=== PATIENT | male | born 1975 | race Caucasian/White ===

== ENCOUNTER 2017-08-24 20:43 | Observation (INO) | payer SELFPAY ==
--- NOTE | 2017-08-24 20:54 | CPEKG ---
Heart Rate: 84 RR Interval: 714 P-R Interval: 144 QRSD Interval: 92 QT Interval: 372 QTC Interval: 440 P [place]: 73 QRS [place]: 51 T Wave [place]: 17 EKG Severity - ABNORMAL ECG - EKG Impression: SINUS RHYTHM EKG Impression: ST DEPRESSION, CONSIDER ISCHEMIA, DIFFUSE LDS Electronically Signed By: Sonu Munoz 26-Aug-2017 15:27:05
[2017-08-24] MEDS ORDERED: ASPIRIN 81 MG CHEWABLE TAB ONE (20:55)
[2017-08-24] MEDS ORDERED: ASPIRIN 81 MG CHEWABLE TAB PO ONE (20:56)
[2017-08-24] MEDS ORDERED: NS 1,000 ML IV ONE (20:58)
[2017-08-24 21:05] LABS: PLATELET COUNT 347 10^3/uL (150-400)
[2017-08-24] MEDS ORDERED: LIDOCAINE 1% 300 MG/30 ML SDV ONE (21:30)
[2017-08-24] MEDS ORDERED: MIDAZOLAM 2 MG/2 ML VIAL ONE (21:30)
[2017-08-24] MEDS ORDERED: fentaNYL 100 MCG/2 ML INJ ONE (21:30)
[2017-08-24] MEDS ORDERED: IOPAMIDOL (ISOVUE-370) 150 ML BTL IV ONE (21:30)
[2017-08-24] MEDS ORDERED: BIVALIRUDIN 250 MG/5 ML VIAL IV ONE (21:31)
--- NOTE | 2017-08-24 21:37 | EDPHY ---
H & P Time Seen by Provider: 08/24/17 20:54 HPI/ROS: CHIEF COMPLAINT: Chest pain HISTORY OF PRESENT ILLNESS: Patient is a 42-year-old male presents to the emergency department with palpitations and chest pain. The patient was riding his mountain bike when he felt palpitations. He stopped and rest and noted that his heart rate remained high. He was able to ride his bike out. When he got into his car he developed bilateral shoulder and neck tightness. He has also felt lightheaded and dizzy. He states"I could barely walk into the ER. "This was because he was feeling dizzy and weak. Patient states that his pain has improved at this point. He has no shortness of breath. No recent travel. No leg pain or swelling. No previous cardiac disease. REVIEW OF SYSTEMS: My complete review of systems is negative except as mentioned in the HPI. Past Medical/Surgical History: Negative Smoking Status: Never smoked Physical Exam: Vitals noted GENERAL: Mild acute distress, alert. HEENT: Eyes normal to inspection, normal pharynx, no signs of dehydration. NECK: No thyromegaly, no lymphadenopathy, supple. RESPIRATORY: Clear to auscultation bilaterally, no rales, rhonchi or wheezing. CVS: Regular rate and rhythm, no rubs, murmurs, or gallops. ABDOMEN: Soft, nontender, nondistended, no organomegaly. BACK: Normal to inspection, no CVA tenderness. SKIN: Normal color, no rash, warm, dry. No pallor. EXTREMITIES: No pedal edema, no calf tenderness, no Homans sign or cords, no joint swelling. NEURO/PSYCH: Alert and oriented, normal mood and affect, normal motor sensory exam. Constitutional: Initial Vital Signs Temperature (C) 36.5 C 08/24/17 20:44 Respiratory Rate 18 08/24/17 20:44 O2 Delivery Mode Nasal Cannula O2 (L/minute) 2 Allergies/Adverse Reactions: No Known Allergies Allergy (Verified 08/24/17 20:46) Home Medications: Medication Instructions Recorded NO HOME MEDICATIONS 02/27/11 Medical Decision Making - Diagnostics Imaging Results: Imaging Impressions Chest X-Ray 08/24/17 20:59 Impression: Negative frontal chest radiograph. ED Course/Re-evaluation: I met the patient on arrival to the room. An IV was placed. Laboratory studies , chest x-ray and EKG were obtained. EKG: Sinus rhythm at 84. Normal axis. Normal intervals. There is significant ST depression II, III, V4 through V6. There is ST elevation in AVR. A cardiac alert was called. I discussed case with Dr. Das. He will come to the emergency department to evaluate the patient. I discussed the plan with the patient. I answered all his questions. Patient's troponin was elevated at 0.045. I again informed the patient of the abnormal EKG and troponin elevation. I felt this was an acute myocardial infarction. I discussed this with the patient. 2134: Dr. Das is in the emergency department evaluated the patient. I discussed the case with Dr. Das. He states the patient does not want to go to the manager labor delivery at this time. Patient is chest pain-free. Patient will be admitted for further observation. I rechecked the patient. He is chest pain-free. I refer ordered a repeat EKG. Differential Diagnosis: My differential includes but is not limited to ACS, acute [place], pericarditis, myocarditis, GERD, reflux, PE Critical Care Time: Patient required 35 min of critical care time. This was exclusive of any unbundled procedure. This was due the patient's presentation, abnormal EKG, multiple rechecks, consultation with Cardiology. - Data Points Laboratory Results: Laboratory Results 08/24/17 20:55 08/24/17 20:55 08/24/17 08/24/17 20:55 20:55 WBC 8.46 10^3/uL 10^3/uL (3.80-9.50) RBC 4.96 10^6/uL 10^6/uL (4.40-6.38) Hgb 15.8 g/dL g/dL (13.7-17.5) Hct 45.7 % % (40.0-51.0) MCV 92.1 fL fL (81.5-99.8) MCH 31.9 pg pg (27.9-34.1) MCHC 34.6 g/dL g/dL (32.4-36.7) RDW 12.6 % % (11.5-15.2) Plt Count 347 10^3/uL 10^3/uL (150-400) MPV 9.6 fL fL (8.7-11.7) Neut % (Auto) 63.5 % % (39.3-74.2) Lymph % (Auto) 26.7 % % (15.0-45.0) Mcmullen % (Auto) 8.3 % % (4.5-13.0) Eos % (Auto) 0.9 % % (0.6-7.6) Baso % (Auto) 0.4 % % (0.3-1.7) Nucleat RBC Rel Count 0.0 % % (0.0-0.2) Absolute Neuts (auto) 5.37 10^3/uL 10^3/uL (1.70-6.50) Absolute Lymphs (auto) 2.26 10^3/uL 10^3/uL (1.00-3.00) Absolute Monos (auto) 0.70 10^3/uL 10^3/uL (0.30-0.80) Absolute Eos (auto) 0.08 10^3/uL 10^3/uL (0.03-0.40) Absolute Basos (auto) 0.03 10^3/uL 10^3/uL (0.02-0.10) Absolute Nucleated RBC 0.00 10^3/uL 10^3/uL (0-0.01) Immature Gran % 0.2 % % (0.0-1.1) Immature Gran # 0.02 10^3/uL 10^3/uL (0.00-0.10) Sodium 137 mEq/L mEq/L (135-145) Potassium 4.9 mEq/L mEq/L (3.3-5.0) Chloride 99 mEq/L mEq/L (97-110) Carbon Dioxide 23 mEq/l mEq/l (22-31) Anion Gap 15 mEq/L mEq/L (8-16) BUN 25 mg/dL H mg/dL (7-23) Creatinine 1.3 mg/dL mg/dL (0.7-1.3) Estimated GFR 60 Glucose 107 mg/dL H mg/dL (70-100) Calcium 10.3 mg/dL mg/dL (8.5-10.4) Troponin I 0.045 ng/mL H ng/mL (0.000-0.034) Specimen Hemolysis 138 Medications Given: Discontinued Medications Aspirin (Aspirin) 324 mg PO EDNOW ONE Stop: 08/24/17 20:57 Last Admin: 08/24/17 20:56 Dose: 324 mg Sodium Chloride (Ns) 1,000 mls @ 3,000 mls/hr IV ONCE ONE Stop: 08/24/17 21:17 Last Admin: 08/24/17 20:59 Dose: 1,000 mls Departure - Departure Disposition: [facility] Inpatient Acute Clinical Impression: Acute myocardial infarction Qualifiers: Myocardial infarction type: ST elevation myocardial infarction Involved coronary artery: left main coronary artery Qualified Code(s): I21.01 - ST elevation (STEMI) myocardial infarction involving left main coronary artery Condition: Fair Referrals: NONE *PRIMARY CARE P,. [Primary Care Provider] - As per Instructions
[2017-08-24] MEDS ORDERED: ONDANSETRON 4 MG/2 ML VIAL IVP PRN (22:19)
[2017-08-24] MEDS ORDERED: ONDANSETRON DISINTEGRATING 4 MG TAB PO PRN (22:19)
[2017-08-24] MEDS ORDERED: ACETAMINOPHEN 325 MG TAB PO PRN (22:19)
[2017-08-24] MEDS ORDERED: NS 1,000 ML IV SCH (22:30)
[2017-08-24] MEDS ORDERED: HEPARIN 10,000 UNIT/10 ML MDV (1,000 UNIT/ML) IVP ONE (22:32)
[2017-08-24] MEDS ORDERED: HEPARIN 10,000 UNIT/10 ML MDV (1,000 UNIT/ML) IVP PRN (22:32)
[2017-08-24] MEDS ORDERED: HEPARIN/DEXTROSE 500 ML IV SCH (22:45)
--- NOTE | 2017-08-24 23:11 | GHP ---
[f rep st] HISTORY AND PHYSICAL DATE OF ADMISSION: 08/24/2017 REASON FOR ADMISSION: Possible unstable angina. HISTORY: The patient is a healthy 42-year-old male who was mountain biking today. After a significa nt climbing section. He stopped to rest. His heart rate felt to be markedly elevated and persisted. He made his way back down, and as he was driving home, he noticed some chest pressure/tightness wit h some numbness in both arms. Because of his symptoms, he decided to come to the emergency room. Hi s symptoms had largely subsided by the time he reached the emergency room. His initial ECG demonstra sintia sinus rhythm with inferolateral horizontal ST-segment depression. There was ST-segment elevation in aVR only. A cardiac alert was activated. When I arrived to assess the patient, he stated he was pain-free and felt completely fine. PAST MEDICAL HISTORY: No ongoing medical problems. Specifically, he does not have hypertension, anahi betes, or hyperlipidemia. PAST SURGICAL HISTORY: No prior surgeries. FAMILY HISTORY: No family history of cardiac disease. MEDICATIONS: No prescription medications. ALLERGIES: No known drug allergies. SOCIAL HISTORY: He is single. However, his girlfriend is with him in the emergency room. He is a f ormer smoker, having stopped approximately 20 years ago. Alcohol consumption is not excessive. He w orks in construction. REVIEW OF SYSTEMS: Apart from the palpitations and chest discomfort that prompted this hospital enco unter, a 10-point review was negative. PHYSICAL EXAMINATION: VITAL SIGNS: heart rate 93 with sinus rhythm on monitor. Blood pressure 146/ 102. GENERAL: This is a healthy-appearing, middle-aged male in no acute distress. He is alert and oriented x3. HEAD AND NECK: No scleral icterus. Mucous membranes moist. Carotid pulses 2+ without bruits. There is no JVD. CHEST: Lung vallejo clear to auscultation bilaterally. CARDIAC: Regular rate and rhythm with a normal S1 and S2. No murmur or gallop. ABDOMEN: Soft, nondistended, nonten stuart with normal bowel sounds. EXTREMITIES: 2+ pulses in all 4 extremities. No peripheral edema. LABORATORY STUDIES: Sodium 137, potassium 4.9, BUN and creatinine of 25 and 1.3. Troponin is mildly elevated at 0.045. His CBC is normal. IMPRESSION: This is a 42-year-old male who experienced a sustained episode of palpitations while bernice ntain biking. This was followed sometime later by chest discomfort. He is now pain free. His ECG d emonstrates inferolateral ST-segment depression. His troponin is minimally elevated. The ST-segment elevation in aVR is potentially concerning for left main coronary artery disease. However, as bebe de la torred, he is pain free and states that he feels normal at this point in time. He is extremely reticen t to consider an invasive procedure such as cardiac catheterization without further evidence that it is necessary. PLAN: The patient will be placed in observation on telemetry. He will be placed on intravenous hepa rin. He has already received aspirin. Serial cardiac enzymes will be checked. He will have a repea t ECG and an echocardiogram tomorrow morning. He should proceed directly to cardiac catheterization if he has recurrent chest discomfort, a significant increase in his cardiac bio markers, or evidence of regional wall motion abnormalities on echocardiography. In the absence of such findings, consider ation can be given to a stress test with nuclear imaging. Further diagnostic and therapeutic decisio ns await his clinical course overnight. /[id number]/MODL
--- NOTE | 2017-08-24 23:14 | CPEKG ---
Heart Rate: 84 RR Interval: 714 P-R Interval: 144 QRSD Interval: 88 QT Interval: 368 QTC Interval: 436 P [place]: 65 QRS [place]: 17 T Wave [place]: 22 EKG Severity - BORDERLINE ECG - EKG Impression: SINUS RHYTHM EKG Impression: LVH BY VOLTAGE Electronically Signed By: Hayden Cortez 26-Aug-2017 08:53:57
[2017-08-24 23:23] LABS: INR 0.99 (0.83-1.16); PROTIME(PATIENT) 13.3 SEC (12.0-15.0)
[2017-08-25 05:44] LABS: CREATINE KINASE 202 IU/L (0-224)
--- NOTE | 2017-08-25 08:58 | CPEKG ---
Heart Rate: 54 RR Interval: 1111 P-R Interval: 156 QRSD Interval: 98 QT Interval: 436 QTC Interval: 414 P [place]: 65 QRS [place]: 25 T Wave [place]: 8 EKG Severity - NORMAL ECG - EKG Impression: SINUS RHYTHM Electronically Signed By: Sonu Munoz 26-Aug-2017 10:49:06
[2017-08-25] MEDS ORDERED: DIAZEPAM 5 MG TAB PO ONE (09:38)
[2017-08-25] MEDS ORDERED: ASPIRIN EC 325 MG TAB PO ONE (09:38)
[2017-08-25] MEDS ORDERED: TEMAZEPAM 15 MG CAP PO PRN (09:38)
[2017-08-25] MEDS ORDERED: NITROGLYCERIN 0.4 MG BTL SL PRN (09:38)
[2017-08-25] MEDS ORDERED: diphenhydrAMINE 25 MG CAP PO ONE (09:38)
[2017-08-25] MEDS ORDERED: FAMOTIDINE 20 MG TAB PO ONE (09:38)
--- NOTE | 2017-08-25 09:38 | SOAPPROG ---
SOAP Progress Note Assessment/Plan: Assessment: 1. Non-Q-wave myocardial infarction. Impression: Day 1 status post non-Q-wave myocardial infarction with elevation in troponin and chest pain. EKG suggest the possibility of a posterior event with early transition across the precordium. His hemodynamics are stable. He is on heparin. Recommendations are for diagnostic angiogram with an eye towards intervention. Risks and benefits of this approach were discussed. Will proceed with a right radial approach. Discussed with his . Secondary prevention discussion to occur post diagnostic procedure. 08/25/17 09:35 Subjective: No further chest pressure. No nausea vomiting. No diaphoresis. Denies PND orthopnea. No palpitations or syncope. Objective: Vital Signs Temp Pulse Resp BP Pulse Ox 36.4 C 60 12 114/73 95 08/25/17 07:40 08/25/17 07:40 08/25/17 07:40 08/25/17 07:40 08/25/17 07:40 08/24/17 08/25/17 08/26/17 05:59 05:59 05:59 Intake Total 1838 Balance 1838 PT 13.3 SEC (12.0-15.0) 08/24/17 22:55 INR 0.99 (0.83-1.16) 08/24/17 22:55 Laboratory Tests 08/24/17 08/25/17 20:55 05:05 Creatine Kinase 202 CK-MB (CK-2) Fraction 9.09 H CK-MB (CK-2) % 4.5 H Troponin I 0.045 H 2.150 H Physical Exam - Physical Exam General Appearance: alert, no apparent distress EENT: PERRL/EOMI, normal ENT inspection Neck: non-tender, full range of motion, supple Respiratory: chest non-tender, lungs clear, normal breath sounds Cardiac/Chest: normal peripheral pulses, regular rate, rhythm, No edema, No gallop, No JVD Peripheral Pulses: 1+: carotid (R), carotid (L), femoral (R), femoral (L), dorsalis-pedis (R), dorsalis-pedis (L) Abdomen: normal bowel sounds, non-tender, soft Back: Normal inspection Skin: normal color, warm/dry, No rash Lymphatic: no adenopathy Extremities: normal range of motion, No pedal edema, No calf tenderness Neuro/Psych: no motor/sensory deficits, alert, normal mood/affect, No facial droop ICD10 Worksheet Patient Problems: Problems Problem Status Onset Acute myocardial infarction Acute Review of Systems - Review of Systems Constitutional: no symptoms reported EENTM: no symptoms reported Respiratory: no symptoms reported Cardiac: no symptoms reported Gastrointestinal/Abdominal: no symptoms reported Genitourinary: no symptoms Musculoskelatal: no symptoms Skin: no symptoms Neurological: no symptoms Hematologic/Lymphatic: no symptoms reported Immunologic/allergic: no symptoms reported All Other Systems: Reviewed and Negative Past Medical History - Personal History Current Tetanus/Diphtheria Vaccine: Unsure - Medical/Surgical History Hx Asthma: No Hx Chronic Respiratory Disease: No Hx Cardiac Disease: No Hx Diabetes: No Hx Renal Disease: No Hx Alcoholism: No Hx Cirrhosis: No Hx HIV/AIDS: No Hx Splenectomy or Spleen Trauma: No Other PMH: denies - Social History Smoking Status: Former smoker
[2017-08-25] MEDS ORDERED: CLOPIDOGREL BISULFATE 75 MG TAB PO ONE (09:39)
--- NOTE | 2017-08-25 09:40 | PDPROPOC ---
Sedation Plan of Care Sedation Plan of Care: vital signs stable, mental status noted, patient educated of risks, benefits, alternatives, patient can tolerate sedation ASA Classification: ASA 2 Planned drugs: fentanyl, midazolam Mallampati Score: Class 1 Mallampati Reference Image: Patient passed 3-3-2 rule?: Yes
--- NOTE | 2017-08-25 09:40 | ASMTCASEMG ---
Living Arrangements What is your living Answers: With Partner arrangement? Who do you live with? Type Of Residence What kind of residence do Answers: House you live in? Discharge Plan Comments Coordination Status Comments Notes: Pt is a 42 y/o man admitted for AMI. Pt is having a heart cath today. Pt will most likely d/c independent when medically stable. No therapies ordered at this time. CM available for changes. Plan: Independent Date Signed: 08/25/2017 09:40 AM Electronically Signed By:SUSI Stone
[2017-08-25 10:13] LABS: PLATELET COUNT 270 10^3/uL (150-400)
[2017-08-25 10:20] LABS: PROTIME(PATIENT) 13.4 SEC (12.0-15.0)
[2017-08-25] MEDS ORDERED: LIDOCAINE 1% 300 MG/30 ML SDV ONE (11:42)
[2017-08-25] MEDS ORDERED: HEPARIN 10,000 UNIT/10 ML MDV (1,000 UNIT/ML) ONE (11:42)
[2017-08-25] MEDS ORDERED: MIDAZOLAM 2 MG/2 ML VIAL ONE (11:42)
[2017-08-25] MEDS ORDERED: fentaNYL 100 MCG/2 ML INJ ONE (11:42)
[2017-08-25] MEDS ORDERED: VERAPAMIL 5 MG/2 ML VIAL ONE (11:42)
[2017-08-25] MEDS ORDERED: IOPAMIDOL (ISOVUE-370) 150 ML BTL IV ONE (11:42)
--- NOTE | 2017-08-25 12:02 | ECHO ---
[email or web address] [address] [address] Main: [phone] Fax: Transthoracic Echocardiogram Name: LOCO JAEGER MR#: [id number] Study Date: 08/25/2017 Study Time: 08:28 AM Date of : 1975 Age: 42 year(s) Height: 177.8 cm (70 in.) Weight: 73.03 kg (161 lb.) BSA: 1.9 m2 Gender: Male Examination: Echo Indication: Chest Pain Image Quality: Contrast: Requested by: Aidan Das BP: 114 mmHg/73 mmHg Heart Rate: Rhythm: Indication: Chest Pain Procedure Staff Photogrammetric Stereo Compiler: Peace Das RDCS Reading Physician: Sarabjit Ivan MD Requesting Provider: Conclusions: No pericardial effusion. Preserved ejection fraction of 65%. No significant valvular abnormalities by Doppler 2 dimensional study. Measurements: Chambers Valvular Assessment AV/MV Valvular Assessment TV/PV Normal Normal Normal Name Value Range Name Value Range Name Value Range IVSd (2D): 0.7 cm (0.6 cm-1.1 AV meanP mmHg ( - ) cm) MV E Vmax: 0.61 m/s ( - ) LVDd (2D): 5.1 cm (4.2 cm-5.9 MV A Vmax: 0.35 m/s ( - ) cm) MV E/A: 1.74 ( - ) LVDs (2D): 3.6 cm (2.1 cm-4 cm) LVPWd (2D): 0.7 cm (0.6 cm-1 cm) LVEF (MOD4): 68 % (>=55 %) EF Range: 60-65 % Continued Measurements: Chambers Valvular Assessment AV/MV Name Value Name Value LADs: 3.8 cm MV E' Septal: 0.11 m/s LADs Lon.3 cm MV E/E' Septal: 5.60 LA Area: 22.0 cm2 MV E/E' Lateral: 5.60 Additional Vessels Name Value Patient: LOCO JAEGER Study Date: 08/25/2017 Page 1 of 2 08:28 AM Ao Ascendin.3 cm Findings: Left Ventricle: Normal size left ventricle. No LV hypertrophy. Normal global systolic LV function. The ejection fraction is estimated to be 60-65 %. No regional wall motion abnormality. Right Ventricle: Normal size right ventricle. Left Atrium: The left atrium is normal in size. Right Atrium: The right atrium is normal in size. Mitral Valve: The mitral valve is normal in appearance and function. Trivial mitral valve regurgitation. Aortic Valve: The aortic valve is normal in appearance and function. Trivial aortic valve regurgitation. Tricuspid Valve: The tricuspid valve is normal in appearance and function. Trivial tricuspid valve regurgitation. Pulmonic Valve: The pulmonic valve is normal in appearance and function. Aorta: The aorta is normal. Pericardium: No pericardial effusion. (No Signature Object) Patient: LOCO JAEGER Study Date: 08/25/2017 Page 2 of 2 08:28 AM [id number]
[2017-08-25] MEDS ORDERED: ATROPINE SULFATE 1 MG/10 ML SYR IVP PRN (12:45)
--- NOTE | 2017-08-25 12:47 | PDDXCAT ---
Diagnostic Cath Note - . Date: 08/25/17 Senior Web Architect: Moncho Indication: other (NonQ RI) - Procedure Access: right wrist Procedure: left heart catheterization, coronary angiography, left ventriculogram - Materials Left Heart Cath size: 5F Left Heart Cath materials: pigtail (LEWIS 1) - Findings-Left Heart Catheterization LM: Normal LAD: Normal LCX: Normal RCA: Dominant: Normal EDP: 11 mm of mercury LVEF: 65% Wall motion: Normal Complications: None Estimated blood loss: <50ml Closure method: TR Band Assessment: 1. Acute coronary syndrome associated with chest pain EKG changes and elevation in troponin. 2. Angiographically normal coronary arteries. 3. Normal LV systolic function without regional wall motion abnormalities and normal filling pressures. Plan: Aspirin 325 mg per day Lipitor 20 mg a day. Clinical follow-up. Patient Problems: Problems Problem Status Onset Acute myocardial infarction Acute
[2017-08-25] MEDS ORDERED: ATORVASTATIN CALCIUM 20 MG TAB PO SCH (15:30)
--- NOTE | 2017-08-25 15:35 | PDDCSUM ---
Discharge Summary Discharge Summary: Admission date 08/25/2017. Discharge date 08/25/2017. Admission diagnosis non-Q-wave myocardial infarction. Discharge diagnosis same Follow-up Moncho 1 week Cardiac rehabilitation Procedures done during this hospitalization echocardiogram, left heart catheterization coronary ventricular angiography. Hospital course patient was admitted through the emergency department with a non -Q-wave myocardial infarction he was rendered pain-free with heparin and standard medical therapy. He was brought to the cardiac clinical laboratory scientist the following morning where he underwent a diagnostic angiogram revealing no focal stenosis and overall preserved LV function. Troponins maxine to 4. Patient was pain-free ambulating without difficulty. At the time of discharge blood pressure was 110/ 70 heart rate was 72 puncture site was healing well without ecchymosis erythema or edema. He had a regular rate and rhythm without gallop his abdomen was soft nontender with good bowel sounds extremities revealed no edema. Patient will be sent home on 06/22 4 mg of aspirin as well as low-dose statin therapy. Clinical follow-up in 1 week. Considerations for cardiac rehabilitation. Questions were answered with the patient his family.
[2017-08-25 15:42] VITALS: BP 98/59
[2017-08-26] MEDS ORDERED: ASPIRIN 325 MG TAB PO SCH (09:00)
== END 2017-08-25 16:40 | disposition home or self-care (01) ==
LOC: INTOOBSV 21:49 → F2W 22:24
PROVIDERS: ADMIT Internal Medicine Interventional Cardiology; ATTEND Internal Medicine Interventional Cardiology
DX: I21.4 Non-ST elevation (NSTEMI) myocardial infarction (principal)
CPT/HCPCS: 85520-90; C1769; G0378; J0583; J1644; J2250; J3010; Q9967